=== PATIENT | male | born 1995 | race Two or more races ===

== ENCOUNTER 2024-09-28 14:16 | Emergency (ER) | payer MEDICAID, SELFPAY ==
[2024-09-28 14:52] VITALS: BP 121/81; PULSE 115; RESP 20; TEMP 39.5; O2SAT 95
[2024-09-28] MEDS: IBUPROFEN TAB 600 MG TABLET PO (15:01)
--- NOTE | 2024-09-28 15:07 | PD.EDURI ---
Upper Respiratory Inf. RME/HPI General Chief Complaint: Flu Like Symptoms Stated Complaint: FEVER, COUGH, ABD PAIN, N/V, DIARRHEA, SORE THROAT Time Seen by Provider: 09/28/24 14:38 Arrival date/time: 09/28/24 14:16 Related Data Allergies Allergy/AdvReac Type Severity Reaction Status Date / Time No Known Allergies Allergy Verified 09/28/24 14:20 Course Orders Category Date Time Status Bedside COVID-19 Antigen Test NOW Care 09/28/24 15:08 Active Bedside Influenza A&B Antigen Test NOW Care 09/28/24 14:55 Completed XR chest 2V Stat Exams 09/28/24 15:08 Completed Blood Culture (Lab) Stat Lab 09/28/24 15:17 Received CBC Stat Lab 09/28/24 15:17 Completed Comprehensive Metabolic Panel Stat Lab 09/28/24 15:17 Completed Lactate (Lactic Acid) Stat Lab 09/28/24 15:17 Completed Procalcitonin Stat Lab 09/28/24 15:17 Completed Strep A Rapid Stat Lab 09/28/24 15:20 Completed Urinalysis Stat Lab 09/28/24 15:08 Ordered Urine Culture Stat Lab 09/28/24 15:08 Ordered Ibuprofen Tab [Motrin Tab] Med 09/28/24 14:55 Discontinued 600 mg PO X1 ONE Vital Signs Vital signs: Vital Signs Temperature 103.1 F H 09/28/24 14:52 Pulse Rate 115 H 09/28/24 14:52 Respiratory Rate 20 09/28/24 14:52 Blood Pressure 121/81 09/28/24 14:52 Pulse Oximetry (%) 95 09/28/24 14:52 Oxygen Delivery Method Room Air 09/28/24 14:52 Upper Respiratory Infection Medications / Prescriptions Medication administrations:: Medication Administration History Discontinued Medications Ibuprofen (Ibuprofen Tab 600 Mg Tablet) 600 mg PO X1 ONE Stop: 09/28/24 14:56 Last Admin: 09/28/24 15:01 Dose: 600 mg Documented By: BRITTNY Discharge Plan Patient/Caregiver Discharge Instructions Print Language: Sami
--- NOTE | 2024-09-28 15:08 | XR_ITS ---
Examination: PA lateral chest 2 views TECHNIQUE: Upright PA lateral chest 2 views Exam date and time: September 28, 2024 1519 hours INDICATIONS: Fever coughing nausea vomiting sore throat beginning 5 days ago. FINDINGS: Normal heart size No pneumonia or pulmonary edema Mild lower thoracic levoscoliosis IMPRESSION: No pneumonia identified
[2024-09-28 15:30] LABS: Lactate (Lactic Acid) 1.3 mMol/L (0.4-2.0)
[2024-09-28 15:33] LABS: Basophils % (Auto) 0 % (0-2.5); Eosinophils % (Auto) 0 % (0-10); Hematocrit 48.9 % (41.0-53.0); Hemoglobin 16.7 g/dL (13.5-16.0); Immature Granulocytes % (Auto) 0 % (0-0); Immature Granulocytes Auto 0.05 Thou/mm3 (0.00-0.00); Lymphocytes # (Auto) 2.1 Thou/mm3 (1.0-4.8); Lymphocytes % (Auto) 17 % (10-50); Mean Corpuscular HGB Conc 34.2 g/dl (31.0-37.0); Mean Corpuscular Hemoglobin 29.1 pg (25.0-35.0); Mean Corpuscular Volume 85 fL (80-100); Monocytes # (Auto) 1.2 Thou/mm3 (0.0-0.8); Monocytes % (Auto) 10 % (0-12); Neutrophils # (Auto) 9.1 Thou/mm3 (1.8-7.7); Neutrophils % (Auto) 73 % (37-80); Nucleated Red Blood Cell % 0 /100 WBC (0); Platelet Count 178 Thou/mm3 (140-440); RDW Standard Deviation 39.1 fL (35.1-43.9); Red Blood Count 5.74 Miln/mm3 (4.50-5.90); White Blood Count 12.5 Thou/mm3 (3.8-10.6)
[2024-09-28 15:47] LABS: Strep A Rapid Negative (Negative)
[2024-09-28 16:03] LABS: Alanine Aminotransferase 22 U/L (10-49); Albumin/Globulin Ratio 1.6 (1.2-2.2); Alkaline Phosphatase 78 U/L (46-116); Anion Gap 9 (7-16); Aspartate Amino Transferase 27 U/L (0-34); BUN/Creatinine Ratio 13 Ratio (12-20); Bilirubin,Total 0.7 mg/dL (0.3-1.2); Blood Urea Nitrogen 14 mg/dL (9-23); Calcium 9.9 mg/dL (8.3-10.6); Calcium (Corrected) 9.9 mg/dL (8.5-10.1); Carbon Dioxide 26.7 mMol/L (20.0-31.0); Chloride 99 mMol/L (98-107); Creatinine (Component) 1.1 mg/dL (0.6-1.3); Globulin 3.1 gm/dL (2.3-3.5); Glucose 101 mg/dL (74-106); Osmolality,Calculated 270 (275-295); Potassium 4.3 mMol/L (3.4-5.1); Procalcitonin 0.31 ng/ml (0.0-0.49); Sodium 135 mMol/L (136-145); Total Protein 8.1 gm/dL (5.7-8.2); eGFR > 60 See Note
--- NOTE | 2024-09-28 16:13 | XR_ITS ---
Examination: CT abdomen and pelvis without contrast. Coronal 3-D reconstructions. Sagittal 2-D reconstructions. Date and time of exam:September 28, 2024 1636 hours INDICATIONS: Generalized abdominal pain fever nausea vomiting diarrhea beginning 4 days ago CTDI: vol (mGy): 5.29 DLP: (mGycm): 316 Technique: Axial images of the abdomen have been obtained, 3 mm slice thickness Intravenous contrast material has not been administered. Low dose protocols were performed. One or more of the following dose reduction techniques were used; automated exposure control, adjustment of the mA and/or KV according to patient size, use of iterative reconstruction technique. Findings: No focal liver or splenic lesion No gallstones No pancreatic or adrenal mass No renal or ureteral calculi, no hydronephrosis Aorta normal size Patient motion obscures scan detail Normal appendix No bowel obstruction No diverticulitis No prostatomegaly Contracted urinary bladder, urinary bladder does appear prominently thickened measuring up to 9 mm IMPRESSION: No renal or ureteral calculi, no hydronephrosis Normal appendix No bowel obstruction or diverticulitis Prominent thickening of the urinary bladder wall, consider cystitis
--- NOTE | 2024-09-28 17:20 | PD.EDRME ---
Rapid Medical Screening Exam RME Arrival date/time: 09/28/24 14:16 29-year-old male presents emerged department complaints of generalized bodyaches, fever, cough, congestion by vomiting and diarrhea Chief Complaint: Flu Like Symptoms Time Seen by Provider: 09/28/24 14:38 Vital signs: Vital Signs Temperature 103.1 F H 09/28/24 14:52 Pulse Rate 115 H 09/28/24 14:52 Respiratory Rate 20 09/28/24 14:52 Blood Pressure 121/81 09/28/24 14:52 Pulse Oximetry (%) 95 09/28/24 14:52 Oxygen Delivery Method Room Air 09/28/24 14:52
[2024-09-28 17:26] LABS: Collection Type, Urine Clean Catch; Squamous Epithelial Cell,Urine 0 /hpf (0-5)
[2024-09-28 17:44] LABS: Bilirubin,Urine Negative (Negative); Blood,Urine Negative (Negative); Clarity,Urine Clear (Clear/Hazy); Color,Urine Yellow (Lt Yel-Yel); Glucose, Urine Negative (Negative); Ketones,Urine 1+ (Negative); Leukocyte Esterase,Urine Negative (Negative); Nitrite,Urine Negative (Negative); Protein,Urine 1+ (Neg - Trace); RBC,Urine 1 /hpf (0-3); Specific Gravity,Urine 1.031 (1.001-1.035); Urobilinogen,Urine Negative mg/dL (0.0-1.0); WBC,Urine 1 /hpf (0-5)
[2024-09-28 19:39] VITALS: BP 122/85; PULSE 86; RESP 18; TEMP 36.8; O2SAT 98
--- NOTE | 2024-09-28 20:04 | EDNOTE_ITS ---
ED General RME/HPI General Chief complaint: Flu Like Symptoms Stated complaint: FEVER, COUGH, ABD PAIN, N/V, DIARRHEA, SORE THROAT Time Seen by Provider: 09/28/24 14:38 Arrival date/time: 09/28/24 14:16 CC: Cough nausea vomiting at x 1 week including fever body aches, then diarrhea for the past 2 days HPI ongoing as stated no OTC medicines taken does not have a primary care provider at the time of the exam in 2003 patient is not in any acute distress RME / HPI RME / HPI narrative: 09/28/24 14:16 29-year-old male presents emerged department complaints of generalized bodyaches, fever, cough, congestion by vomiting and diarrhea Related Data Previous Rx's ?Medication ?Instructions ?Recorded meloxicam 7.5 mg tablet 7.5 mg PO QDAY #10 tabs 09/28/24 ondansetron 4 mg disintegrating 4 mg PO Q8H #10 tabs 09/28/24 tablet Allergies Allergy/AdvReac Type Severity Reaction Status Date / Time No Known Allergies Allergy Verified 09/28/24 14:20 Review of Systems Review of Systems Narrative Review of Systems: GEN: No fever, no chills, no weight loss EYES: No discharge, no visual changes, no pain HEENT: No ear pain, no congestion, no sore throat PULM: No shortness of breath, no cough, no congestion CV: No chest pain, no dyspnea on exertion, no palpitations GI: No nausea, no vomiting, no diarrhea, no pain, no constipation : No frequency, no urgency, no dysuria MUSC/SKEL: No joint pain, no back pain SKIN: No rash PSYCH: No hallucinations, no depression HEME/LYMPH: No easy bleeding or bruising tendencies NEURO: No weakness, no headache Past Medical History Social History SMOKING STATUS: Never smoker ED Exam Narrative Physical exam: [General: Not in any acute distress Head normocephalic HEENT: Within acceptable limits Neck is supple nontender Chest equal chest rise nontender to palpation Respiratory: Clear to auscultation no wheezes crackles or rubs CV: Rate rhythm is regular no murmurs rubs or clicks Abdomen is soft nontender no masses positive bowel sounds all 4 quadrants Back: No CVA tenderness no spinous process tenderness from cervical spine thoracic and lumbar spine Skin: Intact no petechiae rash induration ulceration or crepitus Extremities: Moving all extremity against resistance cap refill less than 2 seconds neurosensory intact Neuro: Awake alert oriented x3 Glascow coma 15 no focal deficits] Course Quality Measures none Orders Category Date Time Status Bedside COVID-19 Antigen Test NOW Care 09/28/24 15:08 Completed Bedside Influenza A&B Antigen Test NOW Care 09/28/24 14:[address] abdomen pelvis wo con Stat Exams 09/28/24 16:13 Completed XR chest 2V Stat Exams 09/28/24 15:08 Completed Blood Culture (Lab) Stat Lab 09/28/24 15:17 Received CBC Stat Lab 09/28/24 15:17 Completed Comprehensive Metabolic Panel Stat Lab 09/28/24 15:17 Completed Lactate (Lactic Acid) Stat Lab 09/28/24 15:17 Completed Procalcitonin Stat Lab 09/28/24 15:17 Completed Strep A Rapid Stat Lab 09/28/24 15:20 Completed Urinalysis Stat Lab 09/28/24 16:51 Completed Urine Culture Stat Lab 09/28/24 16:51 Received Ibuprofen Tab [Motrin Tab] Med 09/28/24 14:55 Discontinued 600 mg PO X1 ONE Vital Signs Vital signs: Vital Signs Temperature 103.1 F H 09/28/24 14:52 Pulse Rate 115 H 09/28/24 14:52 Respiratory Rate 20 09/28/24 14:52 Blood Pressure 121/81 09/28/24 14:52 Pulse Oximetry (%) 95 09/28/24 14:52 Oxygen Delivery Method Room Air 09/28/24 14:52 [facility] Patient data External records reviewed:: [facility] previous records Clinical information provided by:: patient Social determinants that could affect healthcare access:: none Patient has the following chronic illnesses:: None How is presenting disease/condition affected by chronic disease/condition?: u neffected by Evaluation data The following diagnostics were reviewed and interpreted by me:: lab results and radiology exam(s) Lab and/or radiology exams considered but not ordered:: CBC shows a mild leukocytosis of 12,000 no anemia thrombocytopenia CMP shows no acute electrolyte imbalances renal impairment transaminitis or T. bili elevation. Urine is negative for urinary tract infection CT abdomen pelvis shows no acute finding as interpreted by me read by radiology. Urine is negative for UTI Interpretation Summary: I suspect is a viral syndrome even though the CT showed there may be a mild cystitis the patient has no anuria or urinary symptoms. This time patient be discharged with pain medications and nausea medication. Medications Medications considered but not ordered:: None Medication administrations:: Medication Administration History Discontinued Medications Ibuprofen (Ibuprofen Tab 600 Mg Tablet) 600 mg PO X1 ONE Stop: 09/28/24 14:56 Last Admin: 09/28/24 15:01 Dose: 600 mg Documented By: KF None Consultations Consultation(s) initiated? (list below): No Diagnosis Differential Diagnosis ED Complaint MDM: Viral syndrome UTI COVID influenza Most likely diagnosis given after review of the tests above:: Viral syndrome nausea vomiting Admission Indicated Admission indicated?: not indicated Explain why admission is indicated or not indicated:: Stable for outpatient follow-up Admission Request Was there a request for admission?: No Disposition Plan Disposition Plan: Discharge Discharge Attestation Discharge Attestation: The patient and all family members were given an opportunity to ask questions and understood the discharge instructions. Discharge instructions specifically effects, indications for sooner follow up or return to the emergency department, and the expected course of current diagnosis. Patient condition: Stable Medical Decision Making Differential Diagnosis Differential Diagnosis: Viral syndrome UTI COVID influenza Lab Data 09/28/24 15:17 09/28/24 15:17 Labs: Lab Results 09/28/24 09/28/24 09/28/24 Range/Units 15:17 15:20 16:51 WBC 12.5 H (3.8-10.6) Thou/mm3 RBC 5.74 (4.50-5.90) Miln/mm3 Hgb 16.7 H (13.5-16.0) g/dL Hct 48.9 (41.0-53.0) % MCV 85 (80-100) fL MCH 29.1 (25.0-35.0) pg MCHC 34.2 (31.0-37.0) g/dl RDW Std Deviation 39.1 (35.1-43.9) fL Plt Count 178 (140-440) Thou/mm3 Neut % (Auto) 73 (37-80) % Lymph % (Auto) 17 (10-50) % Barren % (Auto) 10 (0-12) % Eos % (Auto) 0 (0-10) % Baso % (Auto) 0 (0-2.5) % Neut # (Auto) 9.1 H (1.8-7.7) Thou/mm3 Lymph # (Auto) 2.1 (1.0-4.8) Thou/mm3 Barren # (Auto) 1.2 H (0.0-0.8) Thou/mm3 Eos # (Auto) 0.0 (0.0-0.5) Thou/mm3 Baso # (Auto) 0.0 (0.0-0.2) Thou/mm3 Immature Gran # (Auto) 0.05 H (0.00-0.00) Thou/mm3 Absolute Nucleated RBC 0.00 (0.00-0.00) Thou/mm3 Immature Gran % 0 (0-0) % Nucleated RBC % 0 (0) /100 WBC Sodium 135 L (136-145) mMol/L Potassium 4.3 (3.4-5.1) mMol/L Chloride 99 (98-107) mMol/L Carbon Dioxide 26.7 (20.0-31.0) mMol/L Anion Gap 9 (7-16) BUN 14 (9-23) mg/dL Creatinine 1.1 (0.6-1.3) mg/dL Estim Creat Clear Calc Not Performed. eGFR > 60 (60 - ) See Note BUN/Creatinine Ratio 13 (12-20) Ratio Glucose 101 (74-106) mg/dL Calculated Osmolality 270 L (275-295) Lactic Acid 1.3 (0.4-2.0) mMol/L Calcium 9.9 (8.3-10.6) mg/dL Corrected Calcium 9.9 (8.5-10.1) mg/dL Total Bilirubin 0.7 (0.3-1.2) mg/dL AST 27 (0-34) U/L ALT 22 (10-49) U/L Alkaline Phosphatase 78 (46-116) U/L Total Protein 8.1 (5.7-8.2) gm/dL Albumin 5.0 (3.5-5.0) gm/dL Globulin 3.1 (2.3-3.5) gm/dL Albumin/Globulin Ratio 1.6 (1.2-2.2) Procalcitonin 0.31 (0.0-0.49) ng/ml Ur Collection Type Clean Catch Urine Color Yellow (Lt Yel-Yel) Urine Clarity Clear (Clear/Hazy) Urine pH 6.0 (5.0-7.0) Ur Specific [place] 1.031 (1.001-1.035) Urine Protein 1+ A (Neg - Trace) Urine Glucose (UA) Negative (Negative) Urine Ketones 1+ A (Negative) Urine Blood Negative (Negative) Urine Nitrite Negative (Negative) Urine Bilirubin Negative (Negative) Urine Urobilinogen (Auto) Negative (0.0-1.0) mg/dL Ur Leukocyte Esterase Negative (Negative) Urine RBC 1 (0-3) /hpf Urine WBC 1 (0-5) /hpf Ur Squamous Epith Cells 0 (0-5) /hpf Urine Bacteria None (None) Group A Strep Rapid Negative (Negative) Discharge Plan Plan Patient Disposition: HOME (Self Care) Patient condition on transfer: Stable Prescriptions/Referrals Prescriptions/Med Rec: New meloxicam 7.5 mg tablet 7.5 mg PO QDAY Qty: 10 0RF ondansetron 4 mg tablet,disintegrating 4 mg PO Q8H Qty: 10 0RF Referrals: No Primary/Family,Physician [Primary Care Provider] - In 1 week Problem List Clinical Impression: Viral infection, Nausea and vomiting Patient/Caregiver Discharge Instructions Education Materials: ED Viral Syndrome (Adult), ED Vomiting (Adult) Additional Instructions: Take the medication as prescribed follow-up with your primary care doctor drink plenty of fluids and rest. Print Language: Mongolian Stand Alone Forms: Kylee Award Info., Patient Portal Info Letter, Work/School Release PA/SOLUTION CONSULTANT Supervising Physician PA/SOLUTION CONSULTANT Supervising Physician: Truong Barcenas ENP
[2024-09-28 20:32] VITALS: RESP 18
== END 2024-09-28 20:33 | disposition home or self-care (01) ==
PROVIDERS: Nurse Practitioner Primary Care; Emergency Provider Emergency Medicine
DX: B34.9 Viral infection, unspecified (principal); R05.9 Cough, unspecified
CPT/HCPCS: 36415; 71046; 74176; 80053; 81001; 83605; 84145; 85025; 87040; 87086; 87400; 87651; 87811; 99284; A9270